=== PATIENT | male | born 1970 | race Caucasian/White ===

== ENCOUNTER 2016-12-05 17:29 | Emergency (ER) | payer MEDICAID ==
--- NOTE | 2016-12-05 18:04 | RADIOLOGY REPORT (SQ) ---
EXAM DESCRIPTION: HAND RIGHT 3 VIEWS COMPLETED DATE/TIME: 12/05/2016 5:51 pm REASON FOR STUDY: pain s/p injury COMPARISON: None. EXAM PARAMETERS: NUMBER OF VIEWS: Three views. TECHNIQUE: AP, lateral and oblique radiographic images acquired of the right hand. LIMITATIONS: None. FINDINGS: MINERALIZATION: Normal. BONES: No acute fracture or dislocation. No worrisome bone lesions. JOINTS: No effusions. SOFT TISSUES: No soft tissue swelling. No foreign body. OTHER: No other significant finding. IMPRESSION: NO RADIOGRAPHIC EVIDENCE OF ACUTE INJURY. TECHNICAL DOCUMENTATION: JOB ID: [id number] [employer]- All Rights Reserved
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
[2016-12-05 19:08] VITALS: BP 128/84
== END 2016-12-05 19:04 | disposition other institution (70) ==
LOC: ER 17:29
DX: S67.21XA Crushing injury of right hand, initial encounter (principal); V86.59XA Driver of other special all-terrain or other off-road motor vehicle injured in nontraffic accident, initial encounter; Y92.009 Unspecified place in unspecified non-institutional (private) residence as the place of occurrence of the external cause; F17.200 Nicotine dependence, unspecified, uncomplicated
CPT/HCPCS: 99283

== ENCOUNTER 2017-02-16 17:44 | Emergency (ER) | payer SELFPAY ==
[2017-02-16 17:50] VITALS: BP 123/84
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
--- NOTE | 2017-02-16 19:31 | RADIOLOGY REPORT (SQ) ---
EXAM DESCRIPTION: RIBS RIGHT W/PA CHEST COMPLETED DATE/TIME: 02/16/2017 7:04 pm REASON FOR STUDY: pain possible injury right ribs COMPARISON: None. TECHNIQUE: Frontal view of the chest and additional views of the right ribs acquired. NUMBER OF VIEWS: 5 LIMITATIONS: None. FINDINGS: FRONTAL CXR: No pneumothorax. No pleural effusion. No atelectasis or infiltrates. RIBS: No displaced rib fractures. No lytic or blastic bony lesions. OTHER: No other significant finding. IMPRESSION: NO PNEUMOTHORAX. NO DISPLACED RIB FRACTURES. COMMENT: SITE OF TRAUMA/COMPLAINT MARKED/STAMP COMPLETED: No TECHNICAL DOCUMENTATION: JOB ID: [id number] [employer]- All Rights Reserved
== END 2017-02-16 20:01 | disposition home or self-care (01) ==
LOC: ER 17:44
DX: S20.211A Contusion of right front wall of thorax, initial encounter (principal); R06.02 Shortness of breath; R07.81 Pleurodynia; R07.89 Other chest pain; Z87.891 Personal history of nicotine dependence; X58.XXXA Exposure to other specified factors, initial encounter
CPT/HCPCS: 99283

== ENCOUNTER 2017-04-03 02:59 | Emergency (ER) | payer SELFPAY ==
[2017-04-03] MEDS ORDERED: MECLIZINE HCL 25 MG TABLET PO ONE (04:16)
[2017-04-03] MEDS ORDERED: ONDANSETRON 4 MG TAB.RAPDIS PO ONE (04:16)
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
--- NOTE | 2017-04-03 04:53 | RADIOLOGY REPORT (SQ) ---
EXAM: NONCONTRAST BRAIN CT EXAMINATION. CLINICAL INDICATION: Head injury. Loss of hearing. Nausea. Left ureter pain. COMPARISON: None. TECHNIQUE: Using low dose helical CT technique, thin section axial images were performed through the brain without the administration of intravenous or subarachnoid contrast material. FINDINGS: Brain volume is normal. No diffuse brain swelling or brain herniation. No hydrocephalus. No subdural or epidural hematomas. No large subacute brain infarction. No parenchymal brain hemorrhage or evidence of intracranial mass lesion. Cerebral white matter is grossly normal. Caudate heads, lentiform nuclei, thalami and internal capsules are normal. Bones of the skull and skull base are normal. The middle ears and mastoid air cells are clear. Mild chronic right maxillary sinusitis. The paranasal sinuses are otherwise clear. Globes and orbits are grossly normal on this noncontrast examination. IMPRESSION: 1. Mild right maxillary chronic sinusitis. Otherwise, normal noncontrast brain CT examination.
[2017-04-03] MEDS ORDERED: CIPROFLOXACIN HCL/DEXAMETH OTIC DROP 7.5 ML AS ONE (05:04)
[2017-04-03 06:04] VITALS: BP 123/84
== END 2017-04-03 05:45 | disposition home or self-care (01) ==
LOC: ER 02:59
DX: H60.90 Unspecified otitis externa, unspecified ear (principal); H92.02 Otalgia, left ear; H91.92 Unspecified hearing loss, left ear; R11.0 Nausea; Z88.5 Allergy status to narcotic agent; Z87.891 Personal history of nicotine dependence
CPT/HCPCS: 99283; 70450; S0119; J3490

== ENCOUNTER 2017-05-13 07:46 | Emergency (ER) | payer SELFPAY ==
--- NOTE | 2017-05-13 08:32 | RADIOLOGY REPORT (SQ) ---
EXAM DESCRIPTION: HAND LEFT 3 VIEWS COMPLETED DATE/TIME: 05/13/2017 8:20 am REASON FOR STUDY: injury 1 week ago COMPARISON: None. EXAM PARAMETERS: NUMBER OF VIEWS: Three views. TECHNIQUE: AP, lateral and oblique radiographic images acquired of the left hand. LIMITATIONS: None. FINDINGS: MINERALIZATION: Normal. BONES: No acute fracture or dislocation. No worrisome bone lesions. JOINTS: No effusions. SOFT TISSUES: No soft tissue swelling. No foreign body. OTHER: No other significant finding. IMPRESSION: NEGATIVE STUDY OF THE LEFT HAND. NO RADIOGRAPHIC EVIDENCE OF ACUTE INJURY. TECHNICAL DOCUMENTATION: JOB ID: [id number] [employer]- All Rights Reserved
--- NOTE | 2017-05-13 09:27 | ER Document Report ---
HPI - HPI Patient complains to provider of: injured left hand Onset: Other Quality of pain: Achy Pain Level: 3 Context: 46-year-old fell off his porch 2 weeks ago injuring his left hand. His second through fourth fingers still hurt, the fourth at worst. No previous fracture. This is his initial visit for the injury. Associated Symptoms: None Exacerbated by: Movement Relieved by: Denies Similar symptoms previously: No Recently seen / treated by doctor: No - ROS ROS below otherwise negative: Yes Systems Reviewed and Negative: Yes All other systems reviewed and negative Past Medical History - General Information source: Patient - Social History Smoking Status: Current Every Day Smoker Frequency of alcohol use: Occasional Drug Abuse: None Lives with: Family Family History: Reviewed & Not Pertinent Renal/ Medical History: Denies: Hx Peritoneal Dialysis Musculoskeltal Medical History: Reports Hx Arthritis, Reports Hx Musculoskeletal Trauma - Fractured left wrist and right ribs Psychiatric Medical History: Reports: Hx Anxiety, Hx Depression Traumatic Medical History: Reports: Hx Fractures - Right ribs left wrist Past Surgical History: Reports: Hx Orthopedic Surgery - BL knee and left wrist - Immunizations Immunizations up to date: Yes Hx Diphtheria, Pertussis, Tetanus Vaccination: Yes Vertical Provider Document - CONSTITUTIONAL Agree With Documented VS: Yes Exam Limitations: No Limitations General Appearance: No Apparent Distress - INFECTION CONTROL TRAVEL OUTSIDE OF THE [place] IN LAST 30 DAYS: No - HEENT HEENT: Normocephalic - NECK Neck: Supple - RESPIRATORY O2 Sat by Pulse Oximetry: 99 - MUSCULOSKELETAL/EXTREMETIES Musculoskeletal/Extremeties: MAEW, Tender - middle & proximal 4th left phalanx the most, mild tender at PIP 3rd and 2nd left fingers - NEURO Level of Consciousness: Awake, Alert Motor/Sensory: No Motor Deficit, No Sensory Deficit Notes: extensor and flexor tendons intact Course - Re-evaluation Re-evalutation: 05/13/17 09:27 xray is negative. - Vital Signs Vital signs: Temp Pulse Resp BP Pulse Ox 97.7 F 70 16 126/84 H 99 05/13/17 07:50 05/13/17 07:50 05/13/17 07:50 05/13/17 07:50 05/13/17 07:50 Discharge - Discharge Clinical Impression: left 2-4 finger sprain Condition: Good Disposition: HOME, SELF-CARE Instructions: Use of Zrpt-Szu-Ejznixz Ibuprofen ([facility]), Sprained Finger ([facility]) Additional Instructions: range of motion referral to orthopedist if persists to er if worse or any concerns Prescriptions: Ibuprofen [Motrin 800 mg Tablet] 800 mg PO Q8HP PRN #30 tablet PRN Reason: Referrals: AMARILYS FULTON DO [ACTIVE STAFF] - Follow up as needed
[2017-05-13 09:44] VITALS: BP 113/84
== END 2017-05-13 09:44 | disposition home or self-care (01) ==
LOC: ER 07:46
DX: S63.651A Sprain of metacarpophalangeal joint of left index finger, initial encounter (principal); S63.613A Unspecified sprain of left middle finger, initial encounter; S63.615A Unspecified sprain of left ring finger, initial encounter; F17.200 Nicotine dependence, unspecified, uncomplicated; W17.89XA Other fall from one level to another, initial encounter
CPT/HCPCS: 99283

== ENCOUNTER 2018-04-01 14:33 | Emergency (ER) | payer SELFPAY ==
[2018-04-01 14:40] VITALS: BP 114/80
--- NOTE | 2018-04-01 18:14 | ER Document Report ---
ED Extremity Problem, Lower - General Chief Complaint: Leg Injury Stated Complaint: LEFT LEG PAIN Time Seen by Provider: 04/01/18 16:39 Mode of Arrival: Ambulatory Information source: Patient Notes: Patient is a 47-year-old male comes emergency room complaining about left lower leg pain. Patient states that he was trimming some tree branches but 3 days ago was up on a ladder and lost his balance he jumped off the ladder and he landed on his left leg but that was complicated by the fact that he had trimmed branches on the ground that his left foot hit and then twisted his ankle and knee. Patient has been ambulatory but with some moderate discomfort. Denies any other injuries except to that of his left foot ankle and knee. Patient also states that he does not have any medical problems and he smokes 1/2 pack of cigarettes a day TRAVEL OUTSIDE OF THE [place] IN LAST 30 DAYS: No - HPI Patient complains to provider of: Injury, Pain Location: Ankle, Foot, Knee Occurred: Other - 3 days ago Where: Home Onset/Duration: Sudden, Worse Quality of pain: Pressure, Sharp, Throbbing Severity: Moderate Pain Level: 3 Context: Twisted, Wearing shoes Recent injury: Yes Associated symptoms: [place] a crack Exacerbated by: Movement, Walking Relieved by: Nothing - Related Data Allergies/Adverse Reactions: hydromorphone HCl [From Dilaudid] Allergy (Verified 05/13/17 07:50) Past Medical History - General Information source: Patient - Social History Smoking Status: Current Every Day Smoker Cigarette use (# per day): Yes - Half-pack a day Chew tobacco use (# tins/day): No Smoking Education Provided: Yes Frequency of alcohol use: None Drug Abuse: None Lives with: Family Family History: Reviewed & Not Pertinent Patient has suicidal ideation: No Patient has homicidal ideation: No Renal/ Medical History: Denies: Hx Peritoneal Dialysis Musculoskeletal Medical History: Reports Hx Arthritis, Reports Hx Musculoskeletal Trauma - Fractured left wrist and right ribs Psychiatric Medical History: Reports: Hx Anxiety, Hx Depression Traumatic Medical History: Reports: Hx Fractures - Right ribs left wrist Past Surgical History: Reports: Hx Orthopedic Surgery - BL knee and left wrist - Immunizations Immunizations up to date: Yes Hx Diphtheria, Pertussis, Tetanus Vaccination: Yes Review of Systems - Review of Systems Constitutional: No symptoms reported EENT: No symptoms reported Cardiovascular: No symptoms reported Respiratory: No symptoms reported Gastrointestinal: No symptoms reported Genitourinary: No symptoms reported Male Genitourinary: No symptoms reported Musculoskeletal: Joint pain, Joint swelling, Muscle pain, Ankle swelling Skin: No symptoms reported Hematologic/Lymphatic: No symptoms reported Neurological/Psychological: No symptoms reported -: Yes All other systems reviewed and negative Physical Exam - Vital signs Vitals: Temp Pulse Resp BP Pulse Ox 97.9 F 74 16 114/80 97 04/01/18 14:39 04/01/18 14:39 04/01/18 14:39 04/01/18 14:39 04/01/18 14:39 Interpretation: Normal - Notes Notes: Well-nourished well-developed male no apparent distress - General General appearance: Appears well, Alert - HEENT Head: Normocephalic, Atraumatic Eyes: Normal - Respiratory Respiratory status: No respiratory distress Chest status: Nontender Breath sounds: Normal. No: Productive cough, Rales, Rhonchi, Stridor, Wheezing Chest palpation: Normal - Cardiovascular Rhythm: Regular Heart sounds: Normal auscultation Murmur: No - Abdominal Inspection: Normal Distension: No distension. No: Tympanitic, Fluid wave, Distended bladder Bowel sounds: Normal Tenderness: Nontender. No: Tender, McBurney's point, Downey's sign, Guarding, Rebound Organomegaly: No: No organomegaly, Hepatomegaly, Splenomegaly, Mass - Back Back: Normal, Nontender. No: Deformity/step-off, CVA tenderness, Vertebra tenderness - Extremities General upper extremity: Normal inspection, Nontender, Normal ROM, Normal strength General lower extremity: Tender, Normal color, Normal temperature. No: Edema, Normal ROM, Normal strength Knee: Tender, Pain with ROM, Patellar tendon intact, Popliteal fossa tender, Other - Examination patient's knee marked primary source of pain shows that he has point tenderness on the medial aspect of the left knee. It is point specific and runs along the area of the medial collateral ligament. Could possibly be meniscus. Patient has full extension and full flexion of the knee. Has good popliteal pulse but very sensitive to palpation back in that area.. No: Deformity, Dislocation, Drawer's test instability, Ecchymosis, Instability, Joint effusion, Laceration, Laxity with valgus stress, Laxity with varus stress , Tender joint line, Unable to bear weight Ankle: Tender, Limited ROM. No: Abrasion, Deformity, Ecchymosis, Edema, Instability, Laceration Foot: Tender. No: Normal, Abrasion, Deformity, Ecchymosis, Edema, Instability, Laceration, Metatarsal compress. pain, Nail injury, Navicular tenderness, No evidence of FB, Puncture wound, Tender 5th metatarsal, Unable to bear weight - Neurological Neuro grossly intact: Yes Orientation: AAOx4 Dhaval Coma Scale Eye Opening: Spontaneous Meyers Chuck Coma Scale Verbal: Oriented Dhaval Coma Scale Motor: Obeys Commands Meyers Chuck Coma Scale Total: 15 Speech: Normal - Skin Skin Temperature: Warm Skin Moisture: Dry Skin Color: Normal, [place] Course - Re-evaluation Re-evalutation: 04/01/18 19:17 I have informed patient that even though his x-rays are negative I still believe that he has some type of a traumatic event. I think that it is probably from location and how sensitive he is to palpation that he probably has the medial collateral ligament or meniscus area that is causing him problems. I am putting him in a knee immobilizer and an Arun wrap for his ankle and he is to follow-up with Orth O if it continues to get worse. I have told him to be nonweightbearing for 3 days after 3 days attempt to bear weight if he is still hurting he needs to see an orthopedist. I will give her or to the personnel director. He will use ibuprofen or Tylenol for pain. - Vital Signs Vital signs: Temp Pulse Resp BP Pulse Ox 97.9 F 74 16 114/80 97 04/01/18 14:39 04/01/18 14:39 04/01/18 14:39 04/01/18 14:39 04/01/18 14:39 Procedures - Immobilization Left Knee Pre-Proc Neuro Vasc Exam: Normal Immobilizer type: Knee immobilizer Performed by: PCT Post-Proc Neuro Vasc Exam: Normal, Unchanged from pre-exam Alignment checked and good: Yes Notes: 04/01/18 19:18 Patient also had an Arun wrap applied by the PCT was also checked by me found to be with good amount of tension that was perfect for his ankle complaint. He had good cap refill in the nailbeds of the toes after application. Discharge - Discharge Clinical Impression: Internal derangement of left knee High ankle sprain Qualifiers: Encounter type: initial encounter Laterality: left Qualified Code(s): S93.432A - Sprain of tibiofibular ligament of left ankle, initial encounter Disposition: HOME, SELF-CARE Instructions: Splint Precautions ([facility]), Sprained Ankle ([facility]), Knee Immobilizing Splint ([facility]), Suspected Internal Knee Injury ([facility]) Additional Instructions: As we discussed leave the immobilizer on at all times. You must take the Arun wrap off when you sleep at night. After 3 days of nonweightbearing attempt to bear weight if it is still painful you will need to see orthopedist. If it is markedly better then you probably just strained it and you can advance the activity as tolerated. Should you have any concerns or problems return to ER for recheck. Forms: Smoking Cessation Education, Return to Work Referrals: VICTORINA ALEJO MD [ACTIVE STAFF] - Follow up as needed
--- NOTE | 2018-04-01 18:44 | RADIOLOGY REPORT (SQ) ---
EXAM DESCRIPTION: ANKLE LEFT COMPLETE COMPLETED DATE/TIME: 04/01/2018 6:07 pm REASON FOR STUDY: fall and ankle pain fell off ladder, twisted ankle COMPARISON: None. NUMBER OF VIEWS: Three views. TECHNIQUE: AP, lateral, and oblique radiographic images acquired of the left ankle. LIMITATIONS: None. FINDINGS: MINERALIZATION: Normal. BONES: No acute fracture or dislocation. No worrisome bone lesions. JOINTS: No effusions. SOFT TISSUES: No soft tissue swelling. No foreign body. OTHER: No other significant finding. IMPRESSION: NEGATIVE STUDY OF THE LEFT ANKLE. NO RADIOGRAPHIC EVIDENCE OF ACUTE INJURY. TECHNICAL DOCUMENTATION: JOB ID: [id number] [employer]- All Rights Reserved Reading location - IP/workstation name: [email or web address]
--- NOTE | 2018-04-01 18:45 | RADIOLOGY REPORT (SQ) ---
EXAM DESCRIPTION: FOOT LEFT COMPLETE COMPLETED DATE/TIME: 04/01/2018 6:07 pm REASON FOR STUDY: fall off ladder , left foot pain COMPARISON: Left ankle three views NUMBER OF VIEWS: Three views. TECHNIQUE: AP, lateral and oblique radiographic images acquired of the left foot. LIMITATIONS: None. FINDINGS: MINERALIZATION: Normal. BONES: No acute fracture or dislocation. No worrisome bone lesions. JOINTS: No effusions. SOFT TISSUES: No soft tissue swelling. No foreign body. OTHER: No other significant finding. IMPRESSION: NEGATIVE STUDY OF THE LEFT FOOT. NO RADIOGRAPHIC EVIDENCE OF ACUTE INJURY. TECHNICAL DOCUMENTATION: JOB ID: [id number] [employer]- All Rights Reserved Reading location - IP/workstation name: [email or web address]
--- NOTE | 2018-04-01 18:46 | RADIOLOGY REPORT (SQ) ---
EXAM DESCRIPTION: KNEE LEFT 3 VIEWS COMPLETED DATE/TIME: 04/01/2018 6:07 pm REASON FOR STUDY: fall off ladder twisted left knee with pain COMPARISON: None. NUMBER OF VIEWS: Three views. TECHNIQUE: AP, lateral, and sunrise patella radiographic images acquired of the left knee. LIMITATIONS: None. FINDINGS: MINERALIZATION: Normal. BONES: No acute fracture or dislocation. No worrisome bone lesions. JOINT: No effusion. SOFT TISSUES: No soft tissue swelling. No radio-opaque foreign body. OTHER: No other significant finding. IMPRESSION: NEGATIVE STUDY OF THE LEFT KNEE. NO RADIOGRAPHIC EVIDENCE OF ACUTE INJURY. TECHNICAL DOCUMENTATION: JOB ID: [id number] [employer]- All Rights Reserved Reading location - IP/workstation name: [email or web address]
== END 2018-04-01 19:29 | disposition home or self-care (01) ==
LOC: ER 14:33
DX: S89.92XA Unspecified injury of left lower leg, initial encounter (principal); S93.432A Sprain of tibiofibular ligament of left ankle, initial encounter; W11.XXXA Fall on and from ladder, initial encounter; Y93.H2 Activity, gardening and landscaping; Y92.007 Garden or yard of unspecified non-institutional (private) residence as the place of occurrence of the external cause; F17.210 Nicotine dependence, cigarettes, uncomplicated
CPT/HCPCS: 99283; 73610; 73630; 73562; L1830

== ENCOUNTER 2018-05-22 12:03 | Emergency (ER) | payer MEDICAID ==
[2018-05-22] MEDS ORDERED: ACETAMINOPHEN 325 MG TABLET PO ONE (13:23)
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
--- NOTE | 2018-05-22 13:59 | RADIOLOGY REPORT (SQ) ---
EXAM DESCRIPTION: CT CERVICAL SPINE WITHOUT COMPLETED DATE/TIME: 05/22/2018 1:37 pm REASON FOR STUDY: neck pain, R thumb weakness COMPARISON: None. TECHNIQUE: Axial images acquired through the cervical spine without intravenous contrast. Images re viewed with lung, soft tissue and bone windows. Reconstructed coronal and sagittal MPR images review ed. Images stored on PACS. All CT scanners at this facility use dose modulation, iterative reconstruction, and/or weight based d osing when appropriate to reduce radiation dose to as low as reasonably achievable (ALARA). [facility]: Dose Right [facility]: CareDose [facility]: Dose Right [facility]: Teradose 4D [facility]: [employer] RADIATION DOSE: CT Rad equipment meets quality standard of care and radiation dose reduction techniq ues were employed. CTDIvol: 17.4 mGy. DLP: 371 mGy-cm. mGy. LIMITATIONS: None. FINDINGS: ALIGNMENT: Anatomic. MINERALIZATION: Normal. VERTEBRAL BODIES: No fractures or dislocation. DISCS: At C5-6, a right paracentral disc herniation is present, flattening the rightward cord and cau sing at least moderate right foraminal stenosis. This is best shown on axial soft tissue window imag e 47/77. There is [id number] central canal narrowing at this level. No significant left manasa inal stenosis. The other disc levels are unremarkable. FACETS, LATERAL MASSES, POSTERIOR ELEMENTS: No fractures. No dislocation. No acute findings. HARDWARE: None in the spine. VISUALIZED RIBS: No fractures. LUNG APICES AND SOFT TISSUES: No significant or acute findings. OTHER: No other significant finding. IMPRESSION: Right paracentral disc herniation at C5-6 causing mild to moderate central canal narrowi ng right greater than left, and moderate right foraminal narrowing. TECHNICAL DOCUMENTATION: JOB ID: [id number] Quality ID # [id number]: Final reports with documentation of one or more dose reduction techniques (e.g., Au tomated exposure control, adjustment of the mA and/or kV according to patient size, use of iterative reconstruction technique) 2010 [employer]- All Rights Reserved Reading location - IP/workstation name: [email or web address]
[2018-05-22 14:35] VITALS: BP 141/91
== END 2018-05-22 14:57 | disposition home or self-care (01) ==
LOC: ER 12:03
DX: M50.220 Other cervical disc displacement, mid-cervical region, unspecified level (principal); J02.9 Acute pharyngitis, unspecified; M25.511 Pain in right shoulder; M79.644 Pain in right finger(s); F17.200 Nicotine dependence, unspecified, uncomplicated
CPT/HCPCS: 99284; 72125; J3490

== ENCOUNTER 2018-08-20 08:59 | Day surgery (SDC) | payer MEDICAID ==
[~2018-08-20 08:59] MED LIST: PROPOFOL INJ 200 MG/20 ML VIAL IV ONE
[2018-08-20 11:05] VITALS: BP 116/79
--- NOTE | 2018-08-20 13:17 | Operative Report ---
Operative Report DATE OF SURGERY: 08/20/18 Operative Report: The risks, benefits and alternatives of the procedure including the risks of bleeding, perforation requiring surgery have been explained to the patient in detail and informed consent has been obtained. Patient is placed in a left, lateral decubital position. Timeout was called. Propofol medication is administered. A rectal examination is done which did not reveal any masses, tears or fissures. An Olympus videoscope was introduced into the patient's r ectum. The scope was then carefully advanced all the way to the cecum. The cecum was identified by the usual anatomical landmarks of the ileocecal valve as well as the appendiceal office. Photodocumentation is obtained. The scope was then sequentially pulled back via the various segments of the colon including the ascending colon, hepatic flexure, transverse colon, splenic flexure, descending colon and finally into the rectosigmoid portions of the colon. Retroflexion maneuver was performed. PREOPERATIVE DIAGNOSIS: Colorectal cancer screening POSTOPERATIVE DIAGNOSIS: Normal screening colonoscopy OPERATION: Diagnostic colonoscopy SURGEON: LAI LINCOLN ANESTHESIA: LMAC TISSUE REMOVED OR ALTERED: None. COMPLICATIONS: None. ESTIMATED BLOOD LOSS: None. INTRAOPERATIVE FINDINGS: As noted above. PROCEDURE: Patient tolerated the procedure well. No immediate postprocedure complications are noted. Patient discharged in good condition. Discharge date 08/20/2018. Discharge diet: Regular. Discharge activity: Regular. 2-3-week follow-up to discuss findings. Patient is instructed to call the office or proceed to the emergency room should there be any further problems or questions. 10-year surveillance colonoscopy.
== END 2018-08-20 10:45 | disposition home or self-care (01) ==
LOC: END 08:59
PROVIDERS: ATTEND Internal Medicine Gastroenterology
DX: Z12.11 Encounter for screening for malignant neoplasm of colon (principal); F17.210 Nicotine dependence, cigarettes, uncomplicated; Z88.5 Allergy status to narcotic agent
CPT/HCPCS: 45378; J2704; 812

== ENCOUNTER 2019-12-31 17:50 | Emergency (ER) | payer MEDICAID ==
--- NOTE | 2019-12-31 18:53 | RADIOLOGY REPORT (SQ) ---
EXAM DESCRIPTION: RIBS RIGHT W/PA CHEST IMAGES COMPLETED DATE/TIME: 12/31/2019 5:22 pm REASON FOR STUDY: right rib pain s/p hitting a hard surface x7d COMPARISON: None. TECHNIQUE: Frontal view of the chest and additional views of the right ribs acquired. NUMBER OF VIEWS: Three view. LIMITATIONS: None. FINDINGS: FRONTAL CXR: No pneumothorax. No pleural effusion. No atelectasis or infiltrates. RIBS: No displaced rib fractures. No lytic or blastic bony lesions. OTHER: No other significant finding. IMPRESSION: NO PNEUMOTHORAX. NO DISPLACED RIB FRACTURES. COMMENT: SITE OF TRAUMA/COMPLAINT MARKED/STAMP COMPLETED: NA TECHNICAL DOCUMENTATION: JOB ID: [id number] [employer]- All Rights Reserved Reading location - IP/workstation name: [email or web address]
[2019-12-31] MEDS ORDERED: KETOROLAC TROMETHAMINE 60 MG/2 ML SDV IM ONE (19:01)
--- NOTE | 2019-12-31 19:16 | ER Document Report ---
HPI - HPI Time Seen by Provider: 12/31/19 18:05 Pain Level: 3 Notes: 49-year-old male presents emergency room for complaints of right-sided rib pain after he accidentally jammed into a stand where cats lay on. Denies any head trauma change in level consciousness. States this happened a week ago. Has tried Tylenol and ibuprofen without full relief. Pain is 3 out of 10, throbbing and achy. Denies any other injury. Patient has a history with controlled substances, is not requesting any pain medication of the controlled nature. Denies fevers, chills, chest pain,palpitations, shortness of breath, dyspnea, nausea, vomiting, diarrhea, abdominal pain, hematuria,blurred vision, double vision, loss of vision, speech changes, LH, dizziness, syncope, headaches, wheezing, ST, URI, neck pain, weakness, bowel or bladder dysfunction, saddle anesthesia, numbness or tingling in bilateral upper or lower extremities equally, muscle paralysis, weakness in bilateral upper or lower extremities equally or rash. Denies IV drug use. MEDICATIONS: I agree with the patient medications as charted by the RN. ALLERGIES: I agree with the allergies as charted by the RN. PAST MEDICAL HISTORY/PAST SURGICAL HISTORY: Reviewed and agree as charted by RN. SOCIAL HISTORY: Reviewed and agree as charted by RN. FAMILY HISTORY: No significant familial comorbid conditions directly related to patient complaint EXAM: Reviewed vital signs as charted by RN. REVIEW OF SYSTEMS:reviewed vital signs by RN CONSTITUTIONAL : Denies fever, chills, or sweats. Denies recent illness. EENT: Denies eye, ear, throat, or mouth pain or symptoms. Denies nasal or sinus congestion or discharge. Denies throat, tongue, or mouth swelling or difficulty swallowing. CARDIOVASCULAR: Denies chest pain. Denies palpitations or racing or irregular heart beat. Denies ankle edema. RESPIRATORY: right rib pain. Denies cough, cold, or chest congestion. Denies shortness of breath, difficulty breathing, or wheezing. GASTROINTESTINAL: Denies abdominal pain or distention. Denies nausea, vomi ting, or diarrhea. Denies blood in vomitus, stools, or per rectum. Denies black, tarry stools. Denies constipation. GENITOURINARY: Denies difficulty urinating, painful urination, burning, freque ncy, blood in urine, or discharge. MUSCULOSKELETAL: Denies back or neck pain or stiffness. Denies joint pain or swelling. SKIN: Denies rash, lesions or sores. HEMATOLOGIC : Denies easy bruising or bleeding. LYMPHATIC: Denies swollen, enlarged glands. NEUROLOGICAL: Denies confusion or altered mental status. Denies passing out or loss of consciousness. Denies dizziness or lightheadedness. Denies headache. Denies weakness or paralysis or loss of use of either side. Denies problems with gait or speech. Denies sensory loss, numbness, or tingling. Denies seizures. PSYCHIATRIC: Denies anxiety or stress. Denies depression, suicidal ideation, or homicidal ideation. ALL OTHER SYSTEMS REVIEWED AND NEGATIVE. Dictation was performed using [employer] voice recognition software PHYSICAL EXAMINATION: GENERAL: Well-appearing, well-nourished and in no acute distress. HEAD: Atraumatic, normocephalic. EYES: Pupils equal round and reactive to light, extraocular movements intact, sclera anicteric, conjunctiva are normal. ENT: Nares patent, oropharynx clear without exudates. Moist mucous membranes. NECK: Normal range of motion, supple without lymphadenopathy LUNGS: Breath sounds clear to auscultation bilaterally and equal. No wheezes rales or rhonchi. 6th, 7th and 8th intercostal spaces, no step off noted. no ecchymosis, crepitus noted. HEART: Regular rate and rhythm without murmurs ABDOMEN: Soft, nontender, nondistended abdomen. No guarding, no rebound. No masses appreciated. Musculoskeletal: Normal range of motion, no pitting or edema. No cyanosis. NEUROLOGICAL: Cranial nerves grossly intact. Normal speech, normal gait. Normal sensory, motor exams PSYCH: Normal mood, normal affect. SKIN: Warm, Dry, normal turgor, no rashes or lesions noted. - REPRODUCTIVE Reproductive: DENIES: : Past Medical History - General Information source: Patient - Social History Smoking Status: Current Every Day Smoker Chew tobacco use (# tins/day): No Frequency of alcohol use: Social Drug Abuse: None Family History: Reviewed & Not Pertinent - Past Medical History Cardiac Medical History: Denies: Hx Coronary Artery Disease, Hx Heart Attack, Hx Hypertension Pulmonary Medical History: Denies: Hx Asthma, Hx Bronchitis, Hx COPD, Hx Pneumonia Neurological Medical History: Denies: Hx Cerebrovascular Accident, Hx Seizures Renal/ Medical History: Denies: Hx Peritoneal Dialysis Musculoskeletal Medical History: Denies Hx Arthritis, Reports Hx Musculoskeletal Trauma - Fractured left wrist and right ribs Psychiatric Medical History: Reports: Hx Anxiety, Hx Depression Traumatic Medical History: Reports: Hx Fractures - Right ribs left wrist Past Surgical History: Reports: Hx Orthopedic Surgery - BL knee and left wrist - Immunizations Immunizations up to date: Yes Hx Diphtheria, Pertussis, Tetanus Vaccination: Yes Vertical Provider Document - CONSTITUTIONAL Agree With Documented VS: Yes Exam Limitations: No Limitations General Appearance: WD/WN - INFECTION CONTROL TRAVEL OUTSIDE OF THE [place] IN LAST 30 DAYS: No Course - Re-evaluation Re-evalutation: 12/31/19 19:39 Afebrile vital stable no distress. Nurses notes reviewed. X-ray negative for any acute fracture, pneumothorax, pneumonia, atelectasis, displaced ribs. Patient refused any narcotic medication due to history of substance abuse. Discussed using NSAIDs, splinting, using an spirometer, taking at least 10 deep breaths an hour and 2 coughs an hour to prevent pneumonia. After performing a Medical Screening Examination, I estimate there is LOW risk for RUPTURED ESOPHAGUS, PNEUMOTHORAX, PULMONARY EMBOLISM, ACUTE CORONARY SYNDROME, OR THO RACIC AORTIC DISSECTION, thus I consider the discharge disposition reasonable. I have reevaluated this patient multiple times and no significant life threatening changes are noted. The patient and I have discussed the diagnosis and risks, and we agree with discharging home with close follow-up. We also discussed returning to the Emergency Department immediately if new or worsening symptoms occur. We have discussed the symptoms which are most concerning (e.g., bloody sputum, worsening pain or shortness of breath) that necessitate immediate return. - Vital Signs Vital signs: Temp Pulse Resp BP Pulse Ox 98.5 F 85 20 99/68 L 98 12/31/19 18:07 12/31/19 17:56 12/31/19 17:56 12/31/19 17:56 12/31/19 17:56 Discharge - Discharge Clinical Impression: Contusion of rib on right side Qualifiers: Encounter type: initial encounter Qualified Code(s): S20.211A - Contusion of right front wall of thorax, initial encounter Condition: Stable Disposition: HOME, SELF-CARE Instructions: Rib Contusion ([facility]) Additional Instructions: Your x-ray was negative for any fractures. You do have a rib contusion. This can take up to 6 weeks to heal. Please take anti-inflammatories as directed. Please take at least 10 deep breaths an hour and cough at least twice an hour so you do not develop pneumonia. When you have to cough or sneeze, please splint your affected rib by applying counterpressure this will help with the pain. Apply heat 20 minutes on 20 minutes off several times a day. Please follow-up with your PCP within the next 24 to 48 hours Return immediately for any new or worsening symptoms. Follow up with primary care provider, call tomorrow to make followup appointment. Prescriptions: Meloxicam [Mobic] 7.5 mg PO DAILY #7 tablet Forms: Return to Work Referrals: MARGIE DIOR DO [Primary Care Provider] - Follow up tomorrow
[2019-12-31 19:49] VITALS: BP 97/66
== END 2019-12-31 19:51 | disposition home or self-care (01) ==
LOC: ER 17:50
DX: S20.211A Contusion of right front wall of thorax, initial encounter (principal); R07.81 Pleurodynia; W22.8XXA Striking against or struck by other objects, initial encounter; F17.200 Nicotine dependence, unspecified, uncomplicated
CPT/HCPCS: 99283; 96372; 71101; J1885